=== PATIENT | female | born 1990 | race Caucasian/White ===

== ENCOUNTER → 2017-01-10 | Outpatient (CLI) | payer MEDICAID ==
[~2017-01-10] MED LIST: GADOBUTROL 10 ML VIAL IVP ONE
== END ==
LOC: FIMAGING 13:00
PROVIDERS: ATTEND Physician Assistant Medical
DX: R56.9 Unspecified convulsions (principal); R42 Dizziness and giddiness
CPT/HCPCS: A9585

== ENCOUNTER 2017-06-21 14:29 | Emergency (ER) | payer MEDICAID ==
--- NOTE | 2017-06-21 14:30 | EDPHY ---
H & P HPI/ROS: CHIEF COMPLAINT: Allergic reaction. HISTORY OF PRESENT ILLNESS: The patient is a 26-year-old female, brought in by EMS from [facility], with allergic reaction. The patient developed diffuse itchy hives, lip and eye swelling, shortness of breath, and redness to her face and neck. The patient received 50mg Benadryl, 125mg Solu-Medrol and Epinephrine injector at the clinic 20 minutes prior to arrival. She continued to be symptomatic and was transferred via EMS to the ED. During transport patient had shortness of breath and received albuterol. Vitals in the field, HR 100, BP 124/78. Patient continues to have diffuse hives and facial redness. She states she has experienced multiple episodes of allergic reactions similar to this. In the past these reactions have been caused by anxiety for which she takes 0.5mg Xanax daily. The patient has not followed up with an wallpaper embosser helper. She is not aware of any new foods or exposures. REVIEW OF SYSTEMS: A ten point review of systems was performed and is negative with the exception of the items mentioned in the HPI. Past medical history: Anxiety Past surgical history: Denies. Family history: Noncontributory. Social history: From [place], lived here for 1 year. General Appearance: Alert. Vital signs reviewed. Blood pressure 134/93 at triage. Eyes: Pupils equal and round, no conjunctival injection, no discharge. Anicteric. ENT, Mouth: Mucous membranes are moist, no oropharyngeal erythema or edema. Neck: No lymphadenopathy, supple. Trachea midline. Respiratory: Lungs are clear to auscultation; no wheezes, rales, or rhonchi. No stridor. Cardiovascular: Regular rate and rhythm; no murmur, rub, or gallop. Gastrointestinal: Abdomen is soft and nontender, no masses or organomegaly, bowel sounds normal. Skin: Face and neck are erythematous with fading hives over extremities. Back: Nontender to palpation over the thoracolumbar spine. No CVAT. Extremities: No lower extremity edema, no calf tenderness or swelling. Neurological: Alert and oriented. Moving all four extremities easily and equally. Psychiatric: Normal affect. Source: Patient, EMS Constitutional: Initial Vital Signs Temperature (C) 36.8 C 06/21/17 14:40 Heart Rate 98 06/21/17 14:40 Respiratory Rate 20 06/21/17 14:40 Blood Pressure 134/93 H 06/21/17 14:40 O2 Sat (%) 96 06/21/17 14:40 O2 Delivery Mode Room Air Allergies/Adverse Reactions: No Known Allergies Allergy (Unverified 06/21/17 14:42) Home Medications: Medication Instructions Recorded EPINEPHRINE [EPIPEN] 0.3 mg IM ONCE #2 syr 06/21/17 Xanax 06/21/17 predniSONE 20 mg PO BID #6 tablet 06/21/17 Medical Decision Making ED Course/Re-evaluation: Patient was brought in by EMS from [facility] with allergic reaction. Patient received Benadryl, Solu-Medrol, and Epinephrine at [facility]. She continued to have symptoms and was transferred here. Patient has diffuse hives and redness to her face and neck. Breathing is normal, trachea is midline. Patient received 20mg Pepcid in the ED. She had already received other treatments for anaphylaxis. We will continue to monitor her for the next hour and a half. She was re-examined tumor times during her stay in the emergency department and continued to be stable with no respiratory compromise. She was discharged home with a prescription for an EpiPen and prednisone. Will continue with antihistamine medications. She is advised to follow up with an wallpaper embosser helper. Differential Diagnosis: I considered a differential diagnosis that includes but is not limited to anaphylaxis, allergic reaction, urticaria, angioedema, and anxiety. - Data Points Medications Given: Discontinued Medications Famotidine (Pepcid) 20 mg PO EDNOW ONE Stop: 06/21/17 14:37 Last Admin: 06/21/17 14:46 Dose: 20 mg Departure - Departure Disposition: Home, Routine, Self-Care Clinical Impression: Allergic reaction Qualifiers: Encounter type: initial encounter Qualified Code(s): T78.40XA - Allergy, unspecified, initial encounter Condition: Good Instructions: General Allergic Reaction (ED) Additional Instructions: Please see an wallpaper embosser helper as soon as possible. You have been referred to an allergy clinic below. Take the prednisone, 20 mg, twice daily for three days. While you are taking the prednisone you should also take an acid blocking medication (such as tagamet or pepcid--you can buy this over the counter). These acid blocking medications also have anti-histamine properties, so they are helpful in the setting of allergic reactions. You should also take one of the over the counter anti-histamines--either benadryl (which will make you sleepy) or claritin (won't make you sleepy). Return to the Emergency Department if you develop shortness of breath, throat swelling, diffuse hives, or worsening of your condition. Referrals: [facility], [place] [Other] - As per Instructions Prescriptions: EPINEPHRINE [EPIPEN] 0.3 mg IM ONCE #2 syr predniSONE 20 mg PO BID #6 tablet Report Scribed for: Cecy Sims Report Scribed by: Polly Diego Date of Report: 06/21/17 Time of Report: 14:40 Physician Review and Approval Statement: 06/21/17 14:40 Portions of this note were transcribed by the spanish medical interpreter. I, Dr. Cecy Sims, personally performed the history, physical exam, and medical decision- making; and confirmed the accuracy of the information in the transcribed note.
[2017-06-21] MEDS ORDERED: FAMOTIDINE 20 MG TAB PO ONE (14:36)
[2017-06-21 14:42] VITALS: TEMP 98.2
[2017-06-21 16:17] VITALS: BP 129/88; PULSE 84; RESP 16; O2SAT 97
== END 2017-06-21 16:24 | disposition home or self-care (01) ==
LOC: EDUNIT#
DX: T78.40XA Allergy, unspecified, initial encounter (principal)

== ENCOUNTER 2017-10-02 18:42 | Emergency (ER) | payer MEDICAID ==
[2017-10-02 18:57] VITALS: O2SAT 97
--- NOTE | 2017-10-02 19:24 | EDPHY ---
H & P Stated Complaint: Had BRB from rectum with bowel movement;no assoc sxs;very anxious Time Seen by Provider: 10/02/17 19:23 HPI/ROS: HPI: This is a 27-year-old female who presents with Chief Complaint: Had BRB from rectum with bowel movement;no assoc sxs;very anxious Location:Rectal Quality: bleeding Duration: 1 hr prior to arrival Signs and Symptoms: no fever, no nausea, no vomiting, no hematemesis, + blood in stool, no abdominal bloating, no diarrhea, no back pain, no urinary symptoms , no vaginal bleeding/discharge, no indigestion, no chest pain, no shortness of breath Timing: Sudden Severity: Mild Context: Patient reports that she had to have a bowel movement today but was unable to and held it. Upon arrival this evening, she strain to have a bowel movement and noted some blood in her stool. Denies large amounts of blood dripping in the toilet. Did note some blood on her toilet tissue. LMP 2-3 weeks. She admits to being hung over today and took Advil. No abdominal pain, nausea, vomiting, dysuria. Denies any rectal trauma or anal intercourse. Modifying Factors: Comment: ROS: see HPI Constitutional: No fever, no chills, no weight loss Eyes: No blurred vision Respiratory: No shortness of breath, no cough Cardiovascular: No chest pain, no palpitations Gastrointestinal: No nausea, no vomiting, no diarrhea, no hematemesis, + blood in stool Genitourinary: No dysuria, no blood in urine Extremities: No myalgias, no edema Neurologic: No weakness, no numbness Skin: No rashes, no petechiae Hematologic: No bruising, no bleeding MEDICAL/SURGICAL/SOCIAL HISTORY: Medical history: anxiety Surgical history: Denies Social history: Employed. CONSTITUTIONAL: Extremely anxious well-appearing adult white female, awake and alert, no obvious distress HEENT: Atraumatic and normocephalic, PERRL, EOMI. Tympanic membranes clear. Oropharynx clear, no exudate and moist pink mucosa. Airway patent. No lymphadenopathy. No meningismus. Cardiovascular: Normal S1/S2, regular rate, regular rhythm, without murmur rub or gallop. PULMONARY/CHEST: Symmetrical and nontender. Clear to auscultation bilaterally. Good air movement. No accessory muscle usage. ABDOMEN: Soft, nondistended, nontender, no rebound, no guarding, no peritoneal signs, no masses or organomegaly. No CVAT. RECTAL: Good sphincter tone, light brown stool in vault, no external hemorrhoids , no fissures, no palpable masses, guaiac trace positive EXTREMITIES: 2/2 pulses, strength 5/5, no deformities, no clubbing, no cyanosis or edema. NEUROLOGICAL: no focal neuro deficits. GCS 15. SKIN: Warm and dry, no erythema. no rash. Good capillary refill. Source: Patient Exam Limitations: No limitations - Personal History LMP (Females 10-55): 15-21 Days Ago Current Tetanus Diphtheria and Acellular Pertussis (TDAP): Yes - Medical/Surgical History Hx Asthma: No Hx Chronic Respiratory Disease: No Hx Diabetes: No Hx Cardiac Disease: No Hx Renal Disease: No Hx Cirrhosis: No Hx Alcoholism: No Hx HIV/AIDS: No Hx Splenectomy or Spleen Trauma: No Other PMH: anxiety - Social History Smoking Status: Current every day smoker Constitutional: Initial Vital Signs Temperature (C) 36.5 C 10/02/17 18:50 Heart Rate 85 10/02/17 18:50 Respiratory Rate 18 10/02/17 18:50 Blood Pressure 120/78 10/02/17 18:50 O2 Sat (%) 97 10/02/17 18:50 O2 Delivery Mode Room Air Allergies/Adverse Reactions: No Known Allergies Allergy (Verified 10/02/17 18:53) Home Medications: Medication Instructions Recorded EPINEPHRINE [EPIPEN] 0.3 mg IM ONCE #2 syr 06/21/17 Xanax 06/21/17 Medical Decision Making - Diagnostics Imaging Results: Imaging Impressions Abdomen X-Ray 10/02/17 19:31 Impression: Mild constipation. ED Course/Re-evaluation: Urinalysis, guaiac, KUB ordered No signs of thrombosed hemorrhoid/active lower GI bleeding/dehydration/sepsis 1942: Urine negative, guaiac trace positive KUB shows stool in rectal vault Ua no infection This patient was seen under the supervision of my secondary supervising physician. I evaluated care for this patient independently. Patient's presentation, labs/imaging, treatment and plan of care were discussed with secondary supervising physician. Differential Diagnosis: Differential diagnosis includes but is not limited to constipation, hemorrhoids , diverticulitis, peptic ulcer disease. - Data Points Laboratory Results: 10/02/17 10/02/17 Unknown 19:30 Urine Color YELLOW Urine Appearance HAZY Urine pH 6.0 (5.0-7.5) Ur Specific [place] 1.024 (1.002-1.030) Urine Protein NEGATIVE (NEGATIVE) Urine Ketones NEGATIVE (NEGATIVE) Urine Blood NEGATIVE (NEGATIVE) Urine Nitrate NEGATIVE (NEGATIVE) Urine Bilirubin NEGATIVE (NEGATIVE) Urine Urobilinogen NEGATIVE EU EU (0.2-1.0) Ur Leukocyte Esterase NEGATIVE (NEGATIVE) Urine Glucose NEGATIVE (NEGATIVE) Stool Occult Bld Scrn POSITIVE H (NEGATIVE) Departure - Departure Disposition: Home, Routine, Self-Care Clinical Impression: Blood present in stool, Constipation by delayed colonic transit Condition: Good Instructions: Rectal Bleeding (ED) Additional Instructions: Avoid constipation. Drink plenty of fluids. Increase fiber in diet. Take over -the-counter MiraLax daily as needed for constipation. Do no strain during bowel movements. Avoid Advil, Ibuprofen, Motrin, etc.., for the next several days. Use witch oliva rectal pads as needed for rectal irritation. If Referrals: Jerson Quiñonez MD [Medical Doctor] - As per Instructions Syed Mustafa MD [Primary Care Provider] - 5-7 days, if not improved
[2017-10-02 19:44] LABS: COLOR YELLOW; LEUKOCYTE ESTERASE,URINE NEGATIVE (NEGATIVE); NITRITE,URINE NEGATIVE (NEGATIVE)
[2017-10-02 20:31] VITALS: BP 118/65; PULSE 77; RESP 16; TEMP 98.2
== END 2017-10-02 20:30 | disposition home or self-care (01) ==
DX: K59.01 Slow transit constipation (principal); F17.200 Nicotine dependence, unspecified, uncomplicated